=== PATIENT | female | born 1935 | race Caucasian/White ===

== ENCOUNTER 2020-07-09 17:41 | Emergency (ER) | payer MEDICARE ==
[~2020-07-09] VITALS: Ht 160 cm; Wt 52.2 kg
--- NOTE | 2020-07-09 17:56 | NUR ---
TENNILLE FROM HOME TO ER BED 5. AAOX4. NOT IN RESP DISTRESS, BREATHING EVEN AND UNLABORED. 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 UPON ARRIVAL, PT HAVE BLOOD SOAKED AND DRIPPNG DRESSING. PRESSURE DRESSING APPLIED AND R ARM ELEVATED. MD WAS AT THE BEDSIDE FOR EVAL. VASCULAR SURGERY IS BEING PAGED PER MD ORDERED.
--- NOTE | 2020-07-09 18:02 | NUR ---
LEFT VM FOR VASCULAR SURGEON DEISY ANTHONY AND JUS ANTHONY. AWAITING CALL BACK
--- NOTE | 2020-07-09 18:11 | NUR ---
TENNILLE FROM HOME TO ER BED 5. AAOX4. NOT IN REPS DISTRESS. BROUGHT IN FOR A BLEEDING FISTULA. UPON ARRIVAL, PT HAVE COPIOUS AMOUNT OF BLEEDING ON HER DIDI FISTULA. PT STATES THAT BLEEDING STARTED WHEN SHE WAS REMOVING HER SWEATER AND HER ARM GOT CAUGHT IN ONE OF THE SLEEVE. PRESSURE DRESSING APPLIED. WAS AT THE BEDSIDE FOR EVAL.
[2020-07-09 18:15] LABS: BASOPHILS # (AUTO) 0.1 /CMM (0.0-0.2); EOSINOPHILS % (AUTO) 2.3 % (0.0-6.0); HEMATOCRIT 30 % (33-45); HEMOGLOBIN 9.4 g/dL (11.5-14.8); LYMPHOCYTES # (AUTO) 0.9 /CMM (0.8-4.8); LYMPHOCYTES % (AUTO) 15.1 % (20.0-44.0); MEAN CORPUSCULAR HGB CONC 31 g/dl (31.0-36.0); MEAN CORPUSCULAR VOLUME 90 fL (82-100); MONOCYTES # (AUTO) 0.4 /CMM (0.1-1.30); MONOCYTES % (AUTO) 7.2 % (2.0-12.0); NEUTROPHILS # (AUTO) 4.5 /CMM (1.8-8.9); NEUTROPHILS % (AUTO) 74.4 % (43.0-81.0); PLATELET COUNT (AUTO) 276 /CMM (150-450); WHITE BLOOD COUNT (AUTO) 6.1 K/uL (4.3-11.0)
[2020-07-09] MEDS ORDERED: CARV25TA2 PO (18:30)
[2020-07-09] MEDS ORDERED: LEVO88TA5 PO (18:30)
[2020-07-09] MEDS ORDERED: APIX2.5T PO (18:30)
[2020-07-09] MEDS ORDERED: PANT40TA49 PO (18:30)
[2020-07-09] MEDS ORDERED: ASPI-1420 PO (18:30)
[2020-07-09] MEDS ORDERED: FURO40TA5 PO (18:30)
[2020-07-09] MEDS ORDERED: TEMA15CA PO (18:30)
[2020-07-09 18:31] LABS: CALCIUM, SERUM 8.6 mg/dL (8.5-10.1); CARBON DIOXIDE 30 mmol/L (21-32); CHLORIDE 102 mmol/L (98-107); CREATININE 3.2 mg/dL (0.6-1.3); GLUCOSE 131 mg/dL (74-106); POTASSIUM 3.1 mmol/L (3.5-5.1); SODIUM SERUM 141 mmol/L (136-145); UREA NITROGEN, BLOOD 20 mg/dL (7-18)
--- NOTE | 2020-07-09 19:40 | NUR ---
PRESSURE DRESSING CHANGED PER MD ORDERED. UPON REMOVING OLD DRESSING, PT NOTED W/ 1 SITE THE IS SQUIRTING BLOOD.
--- NOTE | 2020-07-09 21:44 | NUR ---
CLINICALS SENT TO [facility]
--- NOTE | 2020-07-09 23:50 | NUR ---
CALLED [facility] TO FOLLOW UP PT'S TRANSFER STATUS. STILL IN PROCESS, SPOKE WITH
--- NOTE | 2020-07-09 23:55 | NUR ---
PT IN BED WATCHING TV. NO NOTED BLEEDING ON DIDI FISTULA, DRESSING CLEAN AND DRY. DENIES AND NUMBNESS NOT TINGLING ON HER R ARM. ROM AND SENSTAION INTACT. RADIAL PULSE APPRECIATED
--- NOTE | 2020-07-09 23:57 | NUR ---
Note bailee in EDM - 07/09/20 at 2358 by VIVIAN Patient discharged to home in stable condition. Written and verbal after care instructions given. Patient verbalizes understanding of instruction.IV removed. Catheter intact and site benign. Pressure and 4x4 applied to site. No bleeding noted. Pt ambulatory with a steady gait
--- NOTE | 2020-07-10 00:17 | NUR ---
REC'D A CALL FROM ROGERIO AT [facility], PT WILL BEE TRANSFERRED TO [facility] FOR HIGHER LEVEL OF CARE . AWAITING FOR CALL BACK FROM THE TRANSFER CENTER FOR UPDAT AND ETA.
--- NOTE | 2020-07-10 00:27 | NUR ---
REC'D A CALL FROM LAZARO AT TRANSFER CENTER . PER ALBERTO PT IS NOT GOING TO BE TRANSFERRED TONIGHT DUE TO NO TELE BED AVAILABLE AT THIS TIME.
--- NOTE | 2020-07-10 00:51 | NUR ---
REC'D A CALL FROM LAZARO AT TRANSFER CENTER @ [facility] W/ TRANSFER INFO ACCEPTING DR: DR EAGLE CONSULTING VASCULAR SURGEON: DR. LUU PT GOING TO [address] FLOOR # FOR REPORT: [phone]
--- NOTE | 2020-07-10 01:04 | NUR ---
ETA FOR TRANSPORT 0430 VIA [facility] TRIP NUMBER [id number] [id number] TO [facility].
--- NOTE | 2020-07-10 01:32 | NUR ---
REPORT [facility]IV[facility] TO [facility]
--- NOTE | 2020-07-10 02:07 | NUR ---
IV LINE ESTABLISHED LW 22 G
--- NOTE | 2020-07-10 04:30 | NUR ---
REPORT GIVEN TO EMS. PT STABLE FOR TRANSFER
[2020-07-10 04:35] VITALS: BP 147/79
== END 2020-07-10 04:37 | disposition short-term general hospital (02) ==
LOC: EDBD 17:45 → ER 17:45
DX: T82.838A Hemorrhage due to vascular prosthetic devices, implants and grafts, initial encounter (principal); I48.91 Unspecified atrial fibrillation; Z79.01 Long term (current) use of anticoagulants; I12.0 Hypertensive chronic kidney disease with stage 5 chronic kidney disease or end stage renal disease; N18.6 End stage renal disease; Z99.2 Dependence on renal dialysis; Z79.82 Long term (current) use of aspirin; Z79.899 Other long term (current) drug therapy; I48.92 Unspecified atrial flutter; Z20.828 Contact with and (suspected) exposure to other viral communicable diseases; E03.9 Hypothyroidism, unspecified; Z79.890 Hormone replacement therapy
CPT/HCPCS: 36415; 71045-TC; 80048-TC; 85025-TC; 85730-TC; C9803